=== PATIENT | female | born 1960 | race Caucasian/White ===

== ENCOUNTER 2018-04-20 10:11 | Emergency (ER) | payer MEDICAID, OTHER ==
[~2018-04-20] VITALS: Ht 162.6 cm; Wt 73.3 kg
[2018-04-20 10:47] VITALS: BP 166/105
== END 2018-04-20 12:19 | disposition home or self-care (01) ==
LOC: ED 11:15
DX: S90.31XA Contusion of right foot, initial encounter (principal); W22.03XA Walked into furniture, initial encounter; Y93.89 Activity, other specified; Y92.009 Unspecified place in unspecified non-institutional (private) residence as the place of occurrence of the external cause; Y99.8 Other external cause status
CPT/HCPCS: 99283

== ENCOUNTER 2019-03-28 15:52 | Inpatient (IN) | payer MEDICAID ==
[~2019-03-28] VITALS: Ht 162.6 cm; Wt 84.0 kg
[2019-03-28] MEDS ORDERED: LISI-170 PO (16:21)
[2019-03-28] MEDS ORDERED: OMEP20TA62 PO (16:21)
--- NOTE | 2019-03-28 16:24 | NUR ---
TASK RN: 58 Y/O FEMALE PRESENTS TO ED WITH C/O RIGHT KNEE PAIN. PT STATES "I BLEW MY KNEE OUT TODAY SKIING. I HEAR A POP" OTISN.
[2019-03-28] MEDS ORDERED: KETOROLAC 30 MG/1 ML ONE (16:29)
[2019-03-28] MEDS ORDERED: KETOROLAC 30 MG/1 ML IM ONE (16:30)
[2019-03-28] MEDS ORDERED: OXYcodone/APAP 5/325MG TABLET PO ONE (17:00)
[2019-03-28] MEDS ORDERED: ONDANSETRON ODT 4 MG PO ONE (17:00)
[2019-03-28] MEDS ORDERED: OXYcodone/APAP 5/325MG TABLET ONE (17:15)
[2019-03-28] MEDS ORDERED: ONDANSETRON ODT 4 MG ONE (17:15)
[2019-03-28] MEDS ORDERED: SODIUM CHLORIDE FLUSH 10ML SYR IVF ONE (18:00)
[2019-03-28] MEDS ORDERED: MORPHINE SULFATE 4 MG/ML, 1ML IVPush PRN (18:00)
--- NOTE | 2019-03-28 18:18 | NUR ---
THROUGHPUT RN: GEORGINA AT [facility] DECLINES PT TRANSFER AT THIS TIME. JOSE AT [facility] DECLINES PT TRANSFER AT THIS TIME. PSN FAXED TO [facility] @ [phone]. CONFIRMATION RECEIVED.
--- NOTE | 2019-03-28 18:20 | NUR ---
PT WILL BE ADMITTED FOR TIBIA FRACTURE. IV ESTABLISHED. MEDICATD PER ORDERS. NO NEEDS AT THIS TIME
[2019-03-28 18:29] LABS: BASOPHILS # (AUTO) 0.02 x10^3/uL (0-0.1); BASOPHILS % (AUTO) 0 % (0-1); EOSINOPHILS # (AUTO) 0.05 x10^3/uL (0-0.4); EOSINOPHILS % (AUTO) 1 % (1-7); LYMPHOCYTES # (AUTO) 1.37 x10^3/uL (1-3.4); LYMPHOCYTES % (AUTO) 12 % (22-44); MD NO; MEAN CORPUSCULAR HEMOGLOBIN 31.2 pg (27.0-34.8); MEAN CORPUSCULAR HGB CONC 33.2 g/dL (32.4-35.8); MEAN CORPUSCULAR VOLUME 94.1 fL (80-100); MEAN PLATELET VOLUME 8.5 fL (7.4-10.4); MONOCYTES # (AUTO) 0.57 x10^3/uL (0.2-0.8); MONOCYTES % (AUTO) 5 % (2-9); NEUTROPHILS # (AUTO) 9.15 x10^3/uL (1.8-6.8); NEUTROPHILS % (AUTO) 82 % (42-75); PLATELET COUNT 293 x10^3/uL (130-400); RED BLOOD COUNT 4.58 x10^6/uL (3.82-5.3); RED CELL DISTRIBUTION WIDTH 13.2 % (9.6-15.2)
--- NOTE | 2019-03-28 18:37 | NUR ---
REPORT TO BRIT
[2019-03-28 18:41] LABS: INTERNATIONAL NORMALIZED RATIO 1.03 (0.93-1.1); PROTHROMBIN TIME 10.8 Seconds (9.6-11.5)
[2019-03-28 18:49] LABS: ALBUMIN 4.1 g/dL (3.4-5.0); ANION GAP 5 mmol/L (5-15); CALCIUM 9.2 mg/dL (8.5-10.1); CHLORIDE 111 mmol/L (98-107); CREATININE 1.03 mg/dL (0.55-1.02)
[2019-03-28] MEDS ORDERED: ACETAMINOPHEN 325 MG TABLET PO PRN (19:00)
[2019-03-28] MEDS ORDERED: DOCUSATE 100 MG CAPSULE PO PRN (19:00)
[2019-03-28] MEDS ORDERED: POLYETHYLENE GLYCOL 17 GM PACKET PO PRN (19:00)
[2019-03-28] MEDS ORDERED: ONDANSETRON 2MG/ML, 2ML IVPush PRN (19:00)
[2019-03-28 19:03] VITALS: BP 147/92
[2019-03-28 19:14] VITALS: BP 147/92
[2019-03-28] MEDS ORDERED: FLU VAC QS 19-20(4YR UP)CEL/PF 0.5 ML IM-VACC ONE (20:00)
[2019-03-28] MEDS: OXYcodone/APAP 5/325MG TABLET PO PRN (21:33)
[2019-03-28] MEDS: OMEPRAZOLE 20 MG CAPSULE.DR PO SCH (21:33)
[2019-03-28] MEDS: HEPARIN 5,000 UNITS/ML, 1ML SQ SCH (21:34)
[2019-03-29 00:39] VITALS: BP 106/70
[2019-03-29] MEDS: OXYcodone/APAP 5/325MG TABLET PO PRN ×4 (03:55→21:35)
[2019-03-29] MEDS: HEPARIN 5,000 UNITS/ML, 1ML SQ SCH ×3 (04:17→21:11)
[2019-03-29 07:01] VITALS: BP 110/67
[2019-03-29] MEDS: OMEPRAZOLE 20 MG CAPSULE.DR PO SCH ×2 (09:26→21:11)
[2019-03-29] MEDS: LISINOPRIL 10 MG TABLET PO SCH (09:27)
[2019-03-29] MEDS ORDERED: SENNOSIDES 8.8 MG/5 ML ORAL SOL PO PRN (11:00)
[2019-03-29] MEDS ORDERED: LIDOCAINE-MPF 2% ,5ML ONE (12:21)
[2019-03-29 13:52] VITALS: BP 112/71
[2019-03-29 19:15] VITALS: BP 119/67
[2019-03-30] MEDS: LACTATED RINGERS 1,000 ML IV SCH ×3 (01:00→17:00)
[2019-03-30] MEDS: OXYcodone/APAP 5/325MG TABLET PO PRN ×3 (02:28→20:04)
[2019-03-30 02:40] VITALS: BP 131/76
[2019-03-30] MEDS: HEPARIN 5,000 UNITS/ML, 1ML SQ SCH ×2 (04:29→09:08)
[2019-03-30 05:52] LABS: ANION GAP 3 mmol/L (5-15); CALCIUM 8.5 mg/dL (8.5-10.1); CHLORIDE 109 mmol/L (98-107)
[2019-03-30 05:54] LABS: CREATININE 1.03 mg/dL (0.55-1.02)
[2019-03-30 07:19] VITALS: BP 118/77
[2019-03-30] MEDS: LISINOPRIL 10 MG TABLET PO SCH (09:07)
[2019-03-30] MEDS: OMEPRAZOLE 20 MG CAPSULE.DR PO SCH ×2 (09:07→20:02)
[2019-03-30] MEDS ORDERED: FENTANYL PF 250 MCG/5ML ONE (11:58)
[2019-03-30] MEDS ORDERED: LABETALOL 5MG/ML, 20ML IV PRN (12:00)
[2019-03-30] MEDS ORDERED: OXYcodone 5 MG/5 ML ORAL.SOL UDC PO PRN (12:00)
[2019-03-30] MEDS ORDERED: MEPERIDINE/PF 25MG/ML,1ML IVPush PRN (12:00)
[2019-03-30] MEDS ORDERED: HALOPERIDOL 5 MG/ML IV PRN (12:00)
[2019-03-30] MEDS ORDERED: hydrALAzine 20 MG/ML, 1ML IV PRN (12:00)
[2019-03-30] MEDS ORDERED: PROMETHAZINE 25 MG/ML, 1ML IV PRN (12:00)
[2019-03-30] MEDS ORDERED: ONDANSETRON 2MG/ML, 2ML ONE (12:46)
[2019-03-30] MEDS ORDERED: SUGAMMADEX 200 MG/2 ML IVPush ONE (12:46)
[2019-03-30] MEDS ORDERED: ROCURONIUM 10MG/ML,5ML ONE (12:46)
[2019-03-30] MEDS ORDERED: PROPOFOL 10 MG/ML, 20ML ONE (12:46)
[2019-03-30] MEDS ORDERED: DEXAMETHASONE 4 MG/ML, 1ML ONE (12:46)
[2019-03-30] MEDS ORDERED: NEOSTIGMINE 1 MG/ML, 10ML ONE (12:46)
[2019-03-30] MEDS ORDERED: GLYCOPYRROLATE 0.2MG/1ML, 5ML ONE (12:46)
[2019-03-30] MEDS ORDERED: SUCCINYLCHOLINE 20 MG/ML, 10ML ONE (12:46)
[2019-03-30] MEDS ORDERED: CEFAZOLIN 1,000 MG ONE (12:46)
[2019-03-30] MEDS ORDERED: FENTANYL PF 100 MCG/2ML ONE ×2 (13:04→13:26)
[2019-03-30] MEDS ORDERED: HYDROmorphone 1 MG/ML, 1ML VIAL ONE ×2 (13:04→13:26)
[2019-03-30] MEDS ORDERED: OXYcodone 5 MG/5 ML ORAL.SOL UDC ONE (13:04)
[2019-03-30] MEDS: FENTANYL PF 100 MCG/2ML IV PRN ×3 (13:08→13:28)
[2019-03-30] MEDS: HYDROmorphone 2 MG/ML, 1ML IVPush PRN ×4 (13:09→14:02)
[2019-03-30] MEDS: IBUPROFEN 600 MG TABLET PO PRN (18:15)
[2019-03-30] MEDS: morphine SULFATE 10 MG/ML, 1ML IVPush PRN ×2 (18:16→21:57)
[2019-03-30 19:15] VITALS: BP 132/82
[2019-03-31] MEDS: OXYcodone/APAP 5/325MG TABLET PO PRN ×5 (00:26→14:23)
[2019-03-31 00:40] VITALS: BP 108/70
[2019-03-31] MEDS: IBUPROFEN 600 MG TABLET PO PRN ×3 (00:42→14:23)
[2019-03-31] MEDS: LACTATED RINGERS 1,000 ML IV SCH (01:00)
[2019-03-31 04:42] VITALS: BP 105/71
[2019-03-31 07:38] LABS: CALCIUM 9.2 mg/dL (8.5-10.1); CHLORIDE 106 mmol/L (98-107)
[2019-03-31 07:55] VITALS: BP 104/63
[2019-03-31 07:56] LABS: ANION GAP 5 mmol/L (5-15); CREATININE 1.02 mg/dL (0.55-1.02)
[2019-03-31] MEDS: LISINOPRIL 10 MG TABLET PO SCH (08:25)
[2019-03-31] MEDS: OMEPRAZOLE 20 MG CAPSULE.DR PO SCH (08:25)
[2019-03-31] MEDS: HEPARIN 5,000 UNITS/ML, 1ML SQ SCH ×2 (09:09→16:32)
[2019-03-31 09:19] LABS: BASOPHILS # (AUTO) 0.02 x10^3/uL (0-0.1); BASOPHILS % (AUTO) 0 % (0-1); EOSINOPHILS # (AUTO) 0.08 x10^3/uL (0-0.4); EOSINOPHILS % (AUTO) 1 % (1-7); LYMPHOCYTES % (AUTO) 14 % (22-44); MD SCAN; MEAN CORPUSCULAR HEMOGLOBIN 31.1 pg (27.0-34.8); MEAN CORPUSCULAR HGB CONC 33.4 g/dL (32.4-35.8); MEAN CORPUSCULAR VOLUME 93.1 fL (80-100); MEAN PLATELET VOLUME 7.8 fL (7.4-10.4); MONOCYTES # (AUTO) 0.66 x10^3/uL (0.2-0.8); MONOCYTES % (AUTO) 9 % (2-9); NEUTROPHILS # (AUTO) 5.79 x10^3/uL (1.8-6.8); NEUTROPHILS % (AUTO) 76 % (42-75); PLATELET COUNT 232 x10^3/uL (130-400); RED CELL DISTRIBUTION WIDTH 13.3 % (9.6-15.2)
[2019-03-31 13:21] VITALS: BP 122/74
[2019-03-31] MEDS ORDERED: HYDR-3240 PO (16:22)
[2019-03-31] MEDS: morphine SULFATE 10 MG/ML, 1ML IVPush PRN (16:38)
== END 2019-03-31 18:00 | disposition home health service (06) | DRG 488 ==
LOC: ED 18:12 → EDIP 18:13 → 4NE 18:59
PROVIDERS: ADMIT Family Medicine; ATTEND Family Medicine
PROC: 0QSG04Z Reposition Right Tibia with Internal Fixation Device, Open Approach (ICD-10-PCS; 2019-03-30)
PROC: 0SQC0ZZ Repair Right Knee Joint, Open Approach (ICD-10-PCS; principal; 2019-03-30 13:00)
DX: S82.141A Displaced bicondylar fracture of right tibia, initial encounter for closed fracture (principal); I42.9 Cardiomyopathy, unspecified; F17.200 Nicotine dependence, unspecified, uncomplicated; I10 Essential (primary) hypertension; I25.2 Old myocardial infarction; K21.9 Gastro-esophageal reflux disease without esophagitis; S83.281A Other tear of lateral meniscus, current injury, right knee, initial encounter; W18.39XA Other fall on same level, initial encounter; Y93.89 Activity, other specified; Y92.89 Other specified places as the place of occurrence of the external cause; Y99.8 Other external cause status; Z90.710 Acquired absence of both cervix and uterus; Z88.8 Allergy status to other drugs, medicaments and biological substances
CPT/HCPCS: 36415; 73560; 73564; 76000; 96372; 99285; J3490; 80048; 82040; 85025; 85610; 90674; 93005; C1713; G0378; J0690; J1100; J1170; J1644; J1885; J2405; J2704; J2710; J3010; Q0162; J0330; J2270; J7120